=== PATIENT | male | born 1975 | race Caucasian/White ===

== ENCOUNTER 2019-12-19 07:01 | Day surgery (SDC) | payer OTHER, SELFPAY ==
[~2019-12-19] VITALS: Ht 182.9 cm; Wt 90.7 kg
[2019-12-19] MEDS ORDERED: MIDAZOLAM 2 MG/2 ML VIAL ONE (08:13)
[2019-12-19] MEDS ORDERED: fentaNYL citrate 0.05 MG/ML VIAL ONE (08:13)
[2019-12-19] MEDS ORDERED: LIDOCAINE 2% 100 MG/5 ML UJET TP ONE ×2 (08:14→09:35)
[2019-12-19] MEDS ORDERED: fentaNYL citrate 0.05 MG/ML VIAL IVP ONE (09:35)
[2019-12-19] MEDS ORDERED: MIDAZOLAM 2 MG/2 ML VIAL IVP ONE (09:35)
== END 2019-12-19 10:00 | disposition home or self-care (01) ==
LOC: MDS 07:01 → MFCC 07:01 → MDS 10:00
PROVIDERS: ATTEND Internal Medicine Gastroenterology
DX: K62.5 Hemorrhage of anus and rectum (principal); K64.8 Other hemorrhoids; K59.00 Constipation, unspecified; Z98.890 Other specified postprocedural states; Z20.828 Contact with and (suspected) exposure to other viral communicable diseases
CPT/HCPCS: 45378; J2250; J3010; U0003